=== PATIENT | male | born 1995 | race Caucasian/White ===

== ENCOUNTER 2025-07-08 18:36 | Emergency (ER) | payer BC ==
[~2025-07-08] VITALS: Ht 182.9 cm; Wt 88.0 kg
[2025-07-08 18:38] VITALS: O2SAT 99
[2025-07-08] MEDS: SODIUM CHLORIDE 0.9% 1,000 ML IV ONE (19:50)
[2025-07-08 19:53] LABS: BASOPHILS % 1.0 % (0.0-2.0); EOSINOPHILS % 1.9 % (0.0-5.0); HEMATOCRIT. 44.0 % (42.0-52.0); HEMOGLOBIN. 15.0 g/dL (14.0-18.0); LYMPHOCYTES % 20.0 % (20.0-50.0); MEAN PLATELET VOLUME 9.2 fl (7.4-10.4); MONOCYTES % 8.3 % (2.0-8.0); NEUTROPHILS % 68.8 % (40.0-76.0); PLATELET 240 x1000/uL (130-400); RED BLOOD CELL COUNT 4.96 mill/uL (4.7-6.1); RED CELL DISTRIBUTION WIDTH 13.4 % (11.6-14.6)
[2025-07-08 20:23] LABS: CREATININE 1.3 mg/dL (0.6-1.3); UREA NITROGEN BLOOD 14 mg/dL (9-23)
[2025-07-08 20:25] LABS: ASPARTATE AMINOTRANSFERASE 31 IU/L (<34); BILIRUBIN DIRECT 0.2 mg/dL (<=3.0)
[2025-07-08 20:26] LABS: BILIRUBIN TOTAL 0.7 mg/dL (0.1-1.0); PROTEIN TOTAL 7.8 g/dL (6.0-8.3)
[2025-07-08] MEDS: KETOROLAC 15MG/ML VIAL IV ONE (21:48)
[2025-07-08 21:53] VITALS: BP 129/80; PULSE 76; RESP 16; TEMP 36.9; O2SAT 98
== END 2025-07-08 22:24 | disposition home or self-care (01) ==
LOC: ER 18:36 → CMPBEDREQ 07-09 07:42
DX: R55 Syncope and collapse (principal); I10 Essential (primary) hypertension
CPT/HCPCS: 99291; 70450; 96360; 96361; 80076; 80048; 82962; 83690; 85025; 36415; 71045; 74176; 93005; J7030